=== PATIENT | female | born 1945 | race Caucasian/White ===

== ENCOUNTER → 2018-12-17 | Outpatient (CLI) | payer MEDICARE, OTHER ==
--- NOTE | 2018-12-17 14:49 | KCIC ---
EXAM: Dual energy x-ray absorptiometry (DEXA). HISTORY: Postmenopausal female presents for osteoporosis screening. COMPARISON: None. TECHNIQUE: Dual energy x-ray absorptiometry of the lumbar spine and left hip was performed. Calculation of bone mineral density based on standard deviations above or below the expected young adult normal value (T-score) was completed. FINDINGS: The average bone mineral density in the 1st through 4th lumbar vertebrae is 0.967 g/cmxcm, corresponding with a T-score of -0.7. The average total bone mineral density in the left hip is 0.771 g/cmxcm, corresponding with a T-score of -1.4. IMPRESSION: 1. Osteopenia measured at the left hip. 2. Normal bone mineral density measured at the lumbar spine. Note: Definitions established by the [employer] Organization: 1. Normal: T-score is -1.0 or above. 2. Osteopenia: T-score is between -1.0 and -2.5 . 3. Osteoporosis: T-score is -2.5 or below. Electronically signed by: Natacha Mar MD (12/17/2018 2:46 PM) [facility]
== END | disposition home or self-care (01) ==
LOC: KCIC DEXA 13:51
PROVIDERS: ATTEND Orthopaedic Surgery
DX: Z13.820 Encounter for screening for osteoporosis (principal); M85.88 Other specified disorders of bone density and structure, other site; Z78.0 Asymptomatic menopausal state
CPT/HCPCS: 77080

== ENCOUNTER → 2020-10-05 | Outpatient (CLI) | payer MEDICARE, OTHER ==
--- NOTE | 2020-10-05 14:14 | KCIC ---
EXAM: ULTRASOUND SOFT TISSUE NECK CLINICAL HISTORY: Left neck mass COMPARISON: None available. TECHNIQUE: Limited ultrasound examination of the left neck in the area of concern was performed. FINDINGS: The submandibular gland is seen in the area of palpable concern and measures 2.6 x 1.6 x 1.2 cm. The gland is homogeneous without focal mass or hyperemia. There are adjacent small submandibular lymph wi th normal morphology. The largest measures 9 x 3 x 3 mm. IMPRESSION: Submandibular gland and normal appearing, small lymph nodes in the area of palpable concern in the le ft neck/jaw region. Electronically signed by: Sasha Walters MD (10/05/2020 2:11 PM) [id number]
== END ==
LOC: KCIC US 10:38
PROVIDERS: ATTEND Family Medicine
DX: R22.1 Localized swelling, mass and lump, neck (principal)
CPT/HCPCS: 76536